=== PATIENT | female | born 2000 | race Caucasian/White ===

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

== ENCOUNTER 2025-03-22 11:08 | Outpatient (CLI) | payer BC, SELFPAY ==
[2025-03-22 11:08] VITALS: BMI 38.7
[2025-03-22 11:29] VITALS: BP 135/81; PULSE 109
[2025-03-22 11:38] LABS: Nitrazine Paper, PH Negative
[2025-03-22 12:07] VITALS: BP 131/74; PULSE 90
== END 2025-03-22 12:15 | disposition home or self-care (01) ==
LOC: OPOB 11:11 → OBGYN 11:27
PROVIDERS: PCP Family Medicine; Visit Provider Family Medicine
DX: O26.899 Other specified pregnancy related conditions, unspecified trimester (principal); Z3A.00 Weeks of gestation of pregnancy not specified; N89.8 Other specified noninflammatory disorders of vagina
CPT/HCPCS: 59025; 83986; 99211

== ENCOUNTER 2025-04-01 09:30 | Outpatient (CLI) | payer BC, SELFPAY ==
--- NOTE | 2025-04-01 09:51 | P.ANESASSM_ITS ---
Pre-Anesthetic Assessment Height/Weight: Height 5 ft 2 in Preop Diagnosis: IUP Was Beta Jody taken within 24 hours: N/A Was Clonidine taken within 24 hours: N/A Social No alcohol and No tobacco Exam alert, oriented x 3, clear to auscultation bilaterally and regular rate & rhythm Airway Submandibular: within normal limits Cervical ROM: within normal limits Mallampati: Class II Dentition: full Anesthetic Plan ASA status: 2 Anesthesia: General Other: G1, P0 here for epidural consult No issues during Denies any cardiac or pulmonary issues METs greater than 4 Will obtain labs when patient arrives in active labor Discussed risk/benefits of epidural placement. Proceed when desired Medications/Allergies Home Medications ?Medication ?Instructions ?Recorded ?Confirmed ?Last Taken ?Type azithromycin 500 mg tablet 500 mg PO DAILY 5 days #5 t abs 02/06/23 02/06/23 Unknown Rx Allergies Allergy/AdvReac Type Severity Reaction Status Date / Time adhesive Allergy Unknown Verified 01/27/23 10:39 Penicillins Allergy unk Verified 01/27/23 10:39 [facility] Anesthesia Social History Smoking and tobacco/nicotine status: never used tobacco/nicotine Alcohol intake: never Substance/Drug Use: never Female Reproductive History Spontaneous abortions: No
== END 2025-04-01 09:31 | disposition home or self-care (01) ==
LOC: OPOB 04-14 08:47
PROVIDERS: PCP Family Medicine; Visit Provider Family Medicine
DX: Z53.9 Procedure and treatment not carried out, unspecified reason (principal)

== ENCOUNTER 2025-04-08 07:34 | Inpatient (IN) | payer BC, MEDICAID, SELFPAY ==
[2025-04-08] VITALS (45 sets, daily range): BP systolic 110–169; BP diastolic 60–89; PULSE 67–114; RESP 16–18; TEMP 36.4–36.8; O2SAT 96–100
[2025-04-08 08:04] LABS: Hematocrit 36.1 % (36-47); Hemoglobin 12.90 g/dL (11.27-16.99); Mean Corpuscular HGB Conc 35.7 g/dL (30-55); Mean Corpuscular Hemoglobin 31.8 pg (27-33); Mean Corpuscular Volume 88.9 fl (85-98); Nucleated Red Blood Cells % 0 %; Platelet Count 304 10^3/cmm (157-399); Red Blood Count 4.06 10^6/uL (3.85-5.65); White Blood Count 10.42 10^3/uL (3.29-11.43)
[2025-04-08] MEDS: ROPivacaine syringe 100 MG/50 ML SYRINGE 10 MG EPIDURAL ×2 (09:00→12:43)
--- NOTE | 2025-04-08 09:21 | P.ANESASSM_ITS ---
Pre-Anesthetic Assessment Height/Weight: Height 1.57 m Weight 104.326 kg Pulse BP Pulse Ox 78 143/68 100 04/08/25 09:04 04/08/25 09:04 04/08/25 08:48 Epidural Familial anesthetic complications: None Was Beta Jody taken within 24 hours: N/A Was Clonidine taken within 24 hours: N/A Last intake: > 8 hrs Social No alcohol and No tobacco Exam alert, oriented x 3, clear to auscultation bilaterally and regular rate & rhythm Medications/Allergies Home Medications ?Medication ?Instructions ?Recorded ?Confirmed ?Last Taken ?Type vitamin-ferrous sulfate 1 tab PO DAILY 04/08/25 04/07/25 History 27 mg iron-folic acid 0.8 mg tablet Allergies Allergy/AdvReac Type Severity Reaction Status Date / Time adhesive Allergy Unknown Verified 04/08/25 03:44 Penicillins Allergy unk Verified 04/08/25 03:44 Current Medications Generic Name Dose Route Start Last Admin Trade Name Freq PRN Reason Stop Dose Admin Dextrose/Lactated Ringer's 1,000 mls @ 125 mls/hr 04/08/25 08:00 04/08/25 09:16 Dextrose 5%-Lactated Ringers IV 125 mls/hr .Q8H TOPHER Administration Lactated Ringer's 1,000 mls @ 999 mls/hr 04/08/25 08:00 04/08/25 08:10 Lactated Ringers IV 999 mls/hr .Q1H1M PRN Administration See label comments Ropivacaine 100 mg in 50 mls @ 10 mls/hr 04/08/25 08:00 04/08/25 09:00 Naropin Syringe EPIDURAL 10 mls/hr .Q5H TOPHER Administration [facility] Anesthesia Social History Smoking and tobacco/nicotine status: never used tobacco/nicotine Alcohol intake: never Substance/Drug Use: never Female Reproductive History : 1 Spontaneous abortions: No Data Anesthesia 04/08/25 07:45 Short CBC 04/08/25 Range/Units 07:45 WBC 10.42 (3.29-11.43) 10^3/uL Hgb 12.90 (11.27-16.99) g/dL Hct 36.1 (36-47) % MCV 88.9 (85-98) fl Plt Count 304 (157-399) 10^3/cmm Neut % (Auto) 82.6 % Neut # (Auto) 8.62 H (1.8-7.7) 10^3/uL Blood Bank 04/08/25 07:45 Blood Type O Positive Rho(D) Type Rh positive Antibody Screen Negative
--- NOTE | 2025-04-08 09:22 | ANES.PAUD2 ---
Pre-Anesthetic Update Pre-Anesthetic Assessment: Date of Surgery/Procedure: 04/08/25 Proposed Procedure: Epidural Any changes to Pre-Anesthetic Assessment?: No Labs Last 48hrs: Short CBC 04/08/25 Range/Units 07:45 WBC 10.42 (3.29-11.43) 10^ 3/uL Hgb 12.90 (11.27-16.99) g/ dL Hct 36.1 (36-47) % MCV 88.9 (85-98) fl Plt Count 304 (157-399) 10^3/c mm Neut % (Auto) 82.6 % Neut # (Auto) 8.62 H (1.8-7.7) 10^3/u L Blood Bank 04/08/25 07:45 Blood Type O Positive Rho(D) Type Rh positive Antibody Screen Negative Vitals: Pulse Rate 78 04/08/25 09:04 Blood Pressure 143/68 04/08/25 09:04 Pulse Oximetry 100 04/08/25 08:48 Exam: Pre-Anes Outpt Exam: alert, oriented x 3, clear to auscultation bilaterally and regular rate & rhythm Anesthesia Procedures Epidural: Time Out Performed: Yes Consents Signed: Procedure Consent Consent: requested by attending/covering physician, from patient, from other, risks and benefits reviewed and patient agrees to proceed Lumbar Level: L3-L4 Epidural position: sitting Epidural procedure: sterile prep of area, 1% lidocaine to numb the area, 18 g needle, negative for paresthesia passed, neg for paresthesia, test dose given, 1.5% xylocaine 1:200k epi (5), 0.2% Ropivacaine bolus ml (5), placed PCEA, no systemic response, sterile dressing applied, L.U.D. no apparent complications and 0.2% Ropiavacaine @ mls/hr (13) Additional Comments: CASH at 6 cm, threaded to 12 cm
[2025-04-08] MEDS: oxytocin 30 UNIT/500 ML BAG 600 UNIT IV (13:12)
--- NOTE | 2025-04-08 13:23 | P.PCNOB_ITS ---
Delivery Note: Date of delivery: April 08, 2025 Pre-delivery diagnoses: 25-year-old 1 at 39 weeks estima hector gestational age presenting to the hospital in active labor Post-delivery diagnoses: Status post spontaneous vaginal delivery Procedure: Spontaneous vaginal delivery Delivering Physician: Vikas Schmidt Estimated blood loss (mL): 100 Pre-Delivery Course: The patient presented to the hospital in active labor. An epidural was placed. Spontaneous rupture of membranes occurred. She progressed to complete without difficulty. Some meconium was noted in her amniotic fluid. Delivery: DELIVERY: The patient progressed to complete without difficulty. She delivered a male with a weight of 7 pounds 10 ounces with Apgars of 9, 9. The baby was delivered from the ELLY position and placed on the mother's abdomen. The cord was then clamped and cut. There was no nuchal cord. There was no meconium. The placenta and 3 vessel cord were delivered intact shortly thereafter. The perineum and vaginal vault were carefully examined. No lacerations were noted. Both the mother and the baby were in stable condition. Post-Delivery Status: Good History History History 1 Term Miscarriages/Ectopic Living Children A&P Assessment and plan 1. 39 weeks gestation of : I anticipate routine care. 2. Spontaneous vaginal delivery: PDMP PDMP Reviewed: Not Reviewed Coding Level of Care Code Acute Code for Chg Fwd Diagnoses 39 weeks gestation of Z3A.39 Spontaneous vaginal delivery O80
[2025-04-08] MEDS: benzocaine-menthol 78 gm Canister 1 SPRAY TOPICAL (15:47)
--- NOTE | 2025-04-08 18:59 | PM.OPHPUD ---
Labor & Delivery H&P Update Date of Procedure: April 08, 2025 Date H&P Performed: 04/01/25 Changes to previous documentation: The patient was having consistent contractions and making cervical change Admission Diagnosis: 25-year-old 1 at 39 weeks estimated gestational age presenting to the hospital active labor Planned procedure: Vaginal delivery Other information: The patient is a healthy 25-year-old female who presented to the hospital in active labor. She was having contractions consistently. Her cervix may change after arriving at the hospital. As result she was admitted. She initiated her care in [place]. She later transferred to Dr. Schmidt in the second trimester. Her care was unremarkable. There were no concerns. Her blood type is O+. Her antibody screen was negative. She was GBS negative. Rubella immune. She passed her glucose screen. The remainder of her infectious disease profile was within normal limits. Related Problem List Diagnoses 1. 39 weeks gestation of : A&P Assessment and plan 1. 39 weeks gestation of : I anticipate routine labor and vaginal delivery Status: Acute PDMP PDMP Reviewed: Not Reviewed
[2025-04-09 03:24] LABS: Hematocrit 33.6 % (36-47); Hemoglobin 11.60 g/dL (11.27-16.99); Mean Corpuscular HGB Conc 34.5 g/dL (30-55); Mean Corpuscular Hemoglobin 31.4 pg (27-33); Mean Corpuscular Volume 91.1 fl (85-98); Platelet Count 276 10^3/cmm (157-399); Red Blood Count 3.69 10^6/uL (3.85-5.65); White Blood Count 9.69 10^3/uL (3.29-11.43)
[2025-04-09 04:37] VITALS: BP 136/64; PULSE 88; RESP 16; TEMP 36.6; O2SAT 99
[2025-04-09] MEDS: PRENATAL VIT NO.130/IRON/FOLIC 1 EACH TABLET PO (08:58)
[2025-04-09 09:11] VITALS: BP 130/72; PULSE 82; TEMP 36.6
--- NOTE | 2025-04-09 11:28 | PM.OBGYDC ---
Discharge Providers [facility]RECTION [facility]ARDEN Date of Admission: 04/08/25 07:34 Date of Discharge: 04/09/25 Attending Provider at Admission: Vikas Schmidt MD Attending Provider at Discharge: Vikas Schmidt MD Primary Care Provider: Mildred Warner MD Diagnoses at Discharge Discharge Diagnosis 1. 39 weeks gestation of : Reason for Visit Reason for Visit: contractions Hospital Course Hospital Course The patient presented to the hospital in active labor. An epidural was placed. Spontaneous rupture membranes occurred. She progressed to complete and had an unremarkable delivery of a healthy appearing male . Her course has been unremarkable. Her bleeding has been within normal limits. Her pain is been well-controlled. She has been breast-feeding well. Information Peripartum Data: Delivery Method: Vaginal Physical Exam Narrative: The patient is alert. She appears comfortable. Her heart has a regular rate and rhythm with no murmurs appreciated. Lungs are clear to auscultation bilaterally. Her fundus is firm and below the umbilicus. Urinary Catheter Management: Saeed: Cath Placed During This Visit: yes Urinary Catheter Date of Insertion: 04/08/25 Urinary Catheter Time of Insertion: 09:35 History History History 1 Term Miscarriages/Ectopic Living Children Discharge Data Studies Completed and Pending Laboratory Results WBC 9.69 10^3/uL (3.29-11.43) 04/09/25 03:18 RBC 3.69 10^6/uL (3.85-5.65) L 04/09/25 03:18 Hgb 11.60 g/dL (11.27-16.99) 04/09/25 03:18 Hct 33.6 % (36-47) L 04/09/25 03:18 MCV 91.1 fl (85-98) 04/09/25 03:18 MCH 31.4 pg (27-33) 04/09/25 03:18 MCHC 34.5 g/dL (30-55) 04/09/25 03:18 RDW 12.2 % (12.1-15.1) 04/09/25 03:18 Plt Count 276 10^3/cmm (157-399) 04/09/25 03:18 MPV 8.8 fL (7.4-10.4) 04/09/25 03:18 Neut % (Auto) 82.6 % 04/08/25 07:45 Lymph % (Auto) 9.2 % 04/08/25 07:45 Gem % (Auto) 6.0 % 04/08/25 07:45 Eos % (Auto) 1.2 % 04/08/25 07:45 Baso % (Auto) 0.6 % 04/08/25 07:45 Neut # (Auto) 8.62 10^3/uL (1.8-7.7) H 04/08/25 07:45 Lymph # (Auto) 1.0 10^3/uL (0.8-4.8) 04/08/25 07:45 Gem # (Auto) 0.6 10^3/uL (0.2-0.9) 04/08/25 07:45 Eos # (Auto) 0.1 10^3/uL (0.0-0.8) 04/08/25 07:45 Baso # (Auto) 0.1 10^3/uL (0.0-0.1) 04/08/25 07:45 Nucleated RBC % (auto) 0 % 04/08/25 07:45 Nucleated RBCs # 0.0 /100WBC 04/08/25 07:45 Blood Type O Positive 04/08/25 07:45 Rho(D) Type Rh positive 04/08/25 07:45 Antibody Screen Negative 04/08/25 07:45 Vitals Last Vital Signs Temp 97.8 F 04/09/25 09:11 Pulse 82 04/09/25 09:11 Resp 16 04/09/25 04:37 BP 130/72 04/09/25 09:11 Pulse Ox 99 04/09/25 04:37 O2 Del Method Room Air 04/09/25 09:11 Results Labs OB ([facility]): Blood Type O Positive 04/08/25 Antibody Screen Negative 04/08/25 Hct, (36-47) 33.6 % L Today Hgb, (11.27-16.99) 11.60 g/dL Today Rho(D) Type Rh positive 04/08/25 Plt Count, (157-399) 276 10^3/cmm Today Discharge Plan Discharge Patient Disposition: Home Condition: Stable Prescriptions: New ibuprofen 800 mg Tablet 800 mg PO TID Qty: 45 0RF Continued vit-ferrous sulfat-FA 27 mg iron- 0.8 mg Tablet 1 tab PO DAILY Discharge Order = DC NOW: Discharge Order (Routine); Ordered 04/09/25 Ordered By: Vikas Schmidt Referrals: Vikas Schmidt MD [Physician, Family Practice] - 6 Weeks Discharge Diet: Usual diet Discharge Activity: Limit activity as instructed Patient Instructions: Depression (DC), Bleeding (DC), Preeclampsia and Eclampsia After Delivery (GEN), Hemorrhage (DC), OB Discharge Report, OB Food/Drug Interaction Guide, Opioid Safety, OB Home Care, OB [facility] Parent Packet, OB Vaginal Deliveries, Patient Portal & Jose Instructions Discharge Attestations [facility] Time Spent in Discharge Care*: less than 30 min Coding Level of Care Code Acute Code for Chg Fwd Diagnoses 39 weeks gestation of Z3A.39
[2025-04-09 17:04] VITALS: BP 128/81; PULSE 75; TEMP 36.6
[2025-04-09 17:15] VITALS: BP 128/81; PULSE 75; TEMP 36.6; O2SAT 98
== END 2025-04-09 17:15 | disposition home or self-care (01) | DRG 807 ==
LOC: OPOB 07:34 → OBGYN 07:34
PROVIDERS: Admitting Provider Family Medicine; PCP Family Medicine; Visit Provider Family Medicine
DX: O80 Encounter for full-term uncomplicated delivery (principal); Z37.0 Single live birth; Z3A.39 39 weeks gestation of pregnancy
CPT/HCPCS: 36415; 51702; 59025; 59409; 85025; 85027; 86850; 86900; 99211; J2590; J2795; J7120; J7121; J9999